=== PATIENT | female | born 1945 | race Caucasian/White ===

== ENCOUNTER → 2017-03-12 | Outpatient (CLI) | payer OTHER ==
[~2017-03-12] MED LIST: ADULT LOW DOSE81 MG PO; CLARITIN10 M2 PO; DIABETA 5 MG TAB5 MG PO; HYDROCHLOROTH12.5 M1 PO; HYDROCODON-ACE1 EAC2 PO; LATANOPROST2.5 ML OP; LEVOTHYROXINE50 MCG PO; LISINOPRIL10 MG PO; LORAZEPAM2 MG PO; NEURONTIN 300300 MG PO; OMEPRAZOLE40 MG PO; PERCOCET 10-321 EACH PO; SIMVASTATIN20 MG PO; VENLAFAXINE HCL75 MG PO; XARELTO10 MG PO
[2017-03-12 11:50] LABS: RED BLOOD COUNT 4.84 M/UL (4.00-5.10); WHITE BLOOD COUNT 7.5 K/UL (4.5-11.0)
== END ==
LOC: EDSTATUS 10:00 → OPSV2 10:00
PROVIDERS: Orthopaedic Surgery
DX: Z01.812 Encounter for preprocedural laboratory examination (principal); M17.11 Unilateral primary osteoarthritis, right knee; I10 Essential (primary) hypertension; E11.9 Type 2 diabetes mellitus without complications; E78.00 Pure hypercholesterolemia, unspecified; J44.9 Chronic obstructive pulmonary disease, unspecified
CPT/HCPCS: 36415; 80048; 81001; 83036; 85025; 87081; 93005

== ENCOUNTER → 2017-03-18 | Outpatient (CLI) | payer OTHER | LOC: LAB 08:54 | DX: Z01.818 Encounter for other preprocedural examination (principal) | CPT/HCPCS: 36415; 80051; 82565; 84520; 86850; 86870; 86900; 86901 ==

== ENCOUNTER 2017-03-19 08:17 | Inpatient (IN) | payer OTHER ==
[~2017-03-19] VITALS: Ht 170.2 cm; Wt 89.8 kg
[~2017-03-19 08:17] MED LIST changes: -PERCOCET 10-321 EACH PO; -XARELTO10 MG PO
[2017-03-20 03:00] LABS: HEMOGLOBIN 10.9 gm/dl (12.3-15.3); RED BLOOD COUNT 3.77 M/UL (4.00-5.10); WHITE BLOOD COUNT 10.5 K/UL (4.5-11.0)
[2017-03-21 06:25] LABS: HEMOGLOBIN 9.6 gm/dl (12.3-15.3); RED BLOOD COUNT 3.36 M/UL (4.00-5.10); WHITE BLOOD COUNT 9.7 K/UL (4.5-11.0)
[2017-03-22 06:47] LABS: HEMOGLOBIN 8.7 gm/dl (12.3-15.3); RED BLOOD COUNT 3.08 M/UL (4.00-5.10); WHITE BLOOD COUNT 8.6 K/UL (4.5-11.0)
[2017-03-23 07:41] LABS: BUN/CREATININE RATIO 24 (0-10)
[2017-03-23] MEDS ORDERED: PERCOCET 10-321 EACH PO (12:57)
[2017-03-23] MEDS ORDERED: XARELTO10 MG PO (12:58)
== END 2017-03-23 15:21 | disposition home health service (06) | DRG 469 ==
LOC: M/S 08:17 → ZOBSOF 08:17 → M/S 17:17
PROVIDERS: Emergency Medicine; ADMIT Orthopaedic Surgery
PROC: 3E0T3CZ (ICD-10-PCS; 2017-03-19)
PROC: 0SRC0J9 Replacement of Right Knee Joint with Synthetic Substitute, Cemented, Open Approach (ICD-10-PCS; principal; 2017-03-19 11:30)
DX: M17.11 Unilateral primary osteoarthritis, right knee (principal); J96.01 Acute respiratory failure with hypoxia; D62 Acute posthemorrhagic anemia; E87.70 Fluid overload, unspecified; M21.161 Varus deformity, not elsewhere classified, right knee; M25.761 Osteophyte, right knee; J44.9 Chronic obstructive pulmonary disease, unspecified; E83.42 Hypomagnesemia; I10 Essential (primary) hypertension; E11.9 Type 2 diabetes mellitus without complications; E03.9 Hypothyroidism, unspecified; E78.5 Hyperlipidemia, unspecified; K59.00 Constipation, unspecified; Z87.891 Personal history of nicotine dependence; Z79.84 Long term (current) use of oral hypoglycemic drugs; Z79.82 Long term (current) use of aspirin; Z79.891 Long term (current) use of opiate analgesic; Z79.899 Other long term (current) drug therapy; Z96.652 Presence of left artificial knee joint; Z90.710 Acquired absence of both cervix and uterus; Z98.890 Other specified postprocedural states; Z80.1 Family history of malignant neoplasm of trachea, bronchus and lung; Z82.49 Family history of ischemic heart disease and other diseases of the circulatory system
CPT/HCPCS: 36415; 36600; 71010; 73560; 80048; 82803; 82962; 83735; 85025; 87040; 94640; 94664; 97110; 97116; 97530; 97535; C1776; J0690; J1940; J2250; J2270; J2370; J2405; J2795; J3010; J3370; J7030; J7040; J7050; J7120